=== PATIENT | male | born 1975 | race Hispanic/Latino ===

== ENCOUNTER 2022-09-14 13:15 | Emergency (ER) | payer OTHER ==
--- OUTSIDE RECORDS SUMMARY | 2022-09-14 13:17 | XMS REPORT | Continuity of Care Document ---
:1975 Author Organization [facility] t Address [address] [facility] [address] [place] [address] Care Team Providers Name Role Phone PCP, PATIENT DOES NOT HAVE A Primary Care Physician UnavailJONELLE Godwin Attending Clinician Unavailable Only, Will Db Moshe Attending Clinician Unavailable Unknown, Attending Attending Clinician Unavailable Doctor Unassigned, [place] [facility] [place] Attending Clinician Unavailable JAX CHEUNG Attending Clinician Unavailable Sosa WOOD, Paulina Patel Attending Clinician Unavailable CHAPARRITA MICHEL Attending Clinician Unavailable Payers Payer Name Policy Type Policy Number Effective Date Expiration Date Musa QUICK II [id number] 2020 00:00:00 Problems This patient has no known problems. Allergies, Adverse Reactions, Alerts Allergy Allergy Status Severity Reaction(s) Onset Inactive Treating Comm ents Source Name Type Date Date Clinician NO KNOWN Drug Active [facility]IE Class [facility] Medical Branch Social History Social Habit Start Date Stop Date Quantity Comments Source Exposure to 2021-12-15 2021-12-25 Not sure [facility] SARS-CoV-2 (event) 00:00:00 11:06:00 Medica l Branch Sex Assigned [birth year] [facility] 00:00:00 00:00:00 Medical Branch Smoking Status Start Date Stop Date Source Tobacco smoking consumption Univ [facility] unknown Branch Medications This patient has no known medications. Procedures Procedure Date / Time Performed Performing Clinician [facility] e ASSIGNMENT OF BENEFITS 2021-12-25 16:08:14 Doctor Unassigned, No [facility] Name Medical Branch Encounters Start End Encounter Admission Attending Care Care Encounter Source Date/Time Date/Time Type Type Clinicians Facility Department ID 2021-12-25 2021-12-25 Outpatient Ofelia GREENBERG [facility] [id number] Univers 11:00:00 11:28:07 JONELLE ity [facility] 2021-12-25 2021-12-25 Laboratory Only, Ang Db Test [facility] 1.2.8 [id number] Univers 11:00:00 11:15:00 Only Unknown, Attending HEALTH [id number] ity of [place] [id number] Gregor as LAVELLE?BLEA [phone] La dical [address] MEDICAL OFFICE BUILDING 2021-12-25 2021-12-25 Orders Doctor [id number] Univers 00:00:00 00:00:00 Only Unassigned, KIM [id number] ity of [place] [facility] [id number] Gregor as [phone] [address] 2021-03-11 2021-03-11 Outpatient R [facility] [id number] Univers 18:00:00 18:00:00 [id number] ity [facility] 2021-03-11 2021-03-11 Outpatient R JONATAN [facility] [id number] Univers 18:00:00 18:00:00 JAX moise o f [facility] 2021-03-11 2021-03-11 Letter JOHN Swan [id number] Univers 00:00:00 00:00:00 (Out) Paulina ALVAREZ [id number] it y of HOSPITAL [id number] Gregor as [phone] [facility] [address] [place] 2021-03-09 2021-03-09 [facility] [id number] Univers 15:30:00 15:52:37 CHAPARRITA [facility] Results This patient has no known results.
[2022-09-14] MEDS ORDERED: ASPIRIN 81 MG CHEWABLE TABLET ONE (13:47)
[2022-09-14] MEDS ORDERED: CYCLOBENZAPRINE 10 MG TAB ONE (13:47)
[2022-09-14 14:15] LABS: Absolute Lymphocytes (CBC) 2.3 K/uL (0.7-4.9); Hematocrit 47.6 % (39.6-49.0); Lymphocytes % 25.9 % (15.3-44.8); MCV 91.2 fL (80-100); MPV 9.1 fL (7.6-11.3); RBC Red Blood Cell Count 5.21 M/uL (4.33-5.43)
[2022-09-14 14:29] LABS: ALT/SGPT 72 U/L (16-61); AST/SGOT 29 U/L (15-37); Albumin 4.2 g/dL (3.4-5.0); Alkaline Phosphatase 60 U/L (45-117); BUN Blood Urea Nitrogen 12 mg/dL (7-18); Bicarbonate 26 mEq/L (21-32); Bilirubin Direct 0.2 mg/dL (0-0.2); Bilirubin Indirect, Calculated 0.7 mg/dL (0.2-0.8); Bilirubin Total 0.9 mg/dL (0.2-1.0); Glomerular Filtration Rate 105 ml/min (=/>90); Glucose Level 89 mg/dL (74-106); Magnesium 2.6 mg/dL (1.6-2.4); NT PRO-BNP 31 pg/mL (<125); Potassium 3.9 mEq/L (3.5-5.1); Protein, Total 7.9 g/dL (6.4-8.2); Sodium Level 138 mEq/L (136-145)
[2022-09-14 14:30] LABS: Troponin High Sensitivity < 3.0 pg/mL (<58.9)
--- NOTE | 2022-09-14 15:23 | RAD REPORT ---
EXAM DESCRIPTION: RAD - Chest Single View - 09/14/2022 3:13 pm CLINICAL HISTORY: CHEST PAIN COMPARISON: No comparisons FINDINGS: Lines: None. Lungs: No evidence of edema or pneumonia. Pleural: No significant pleural effusions or pneumothorax. Cardiac: The heart size is within normal limits. Mediastinum: Within normal limits. Bones: No acute fractures. Other: None IMPRESSION: No acute cardiopulmonary disease.
--- NOTE | 2022-09-14 15:38 | EDPHYS ---
Physician Documentation [facility] Name: Andre Interiano Age: 47 yrs Sex: Male : 1975 Arrival Date: 09/14/2022 Time: 13:15 Bed 17 Private MD: ED Physician Addison Edward HPI: 09/14 14:49 This 47 yrs old Male presents to ER via Ambulatory with complaints of Chest rt Pain, Back Pain. 14:49 Patient presents to the ED with a chest pain as well as back pain that has been present rt for about 2 days. Is been constant but waxes and wanes in intensity. The patient states that his symptoms actually improve when he moves about and gets worse when he is sitting down and resting. Denies any association with food. He denies other acute complaints at this time or other associated symptoms. Symptoms are moderate severity, aching nature, otherwise radiating, no other aggravating alleviating factors.. Historical: - Allergies: 13:36 No Known Allergies; jl7 - Home Meds: 13:36 None [Active]; jl7 - PMHx: 13:36 None; jl7 - PSHx: 13:36 None; jl7 - Immunization history:: Adult Immunizations unknown. - Social history:: Smoking status: Patient reports the use of cigarette tobacco products. ROS: 14:49 Constitutional: Negative for fever, chills, and weight loss, Abdomen/GI: Negative for rt abdominal pain, nausea, vomiting, diarrhea, and constipation, MS/Extremity: Negative for injury and deformity, Skin: Negative for injury, rash, and discoloration, Neuro: Negative for headache, weakness, numbness, tingling, and seizure, Psych: Negative for depression, anxiety, suicide ideation, homicidal ideation, and hallucinations. 14:49 Cardiovascular: Positive for chest pain, Negative for edema. 14:49 Back: Positive for pain at rest, Negative for injury or acute deformity. Exam: 14:49 Constitutional: This is a well developed, well nourished patient who is awake, alert, rt and in no acute distress. Head/Face: Normocephalic, atraumatic. Chest/axilla: Normal chest wall appearance and motion. Nontender with no deformity. No lesions are appreciated. Cardiovascular: Regular rate and rhythm with a normal S1 and S2. No gallops, murmurs, or rubs. Normal PMI, no JVD. No pulse deficits. Respiratory: Lungs have equal breath sounds bilaterally, clear to auscultation and percussion. No rales, rhonchi or wheezes noted. No increased work of breathing, no retractions or nasal flaring. Abdomen/GI: Soft, non-tender, with normal bowel sounds. No distension or tympany. No guarding or rebound. No evidence of tenderness throughout. Skin: Warm, dry with normal turgor. Normal color with no rashes, no lesions, and no evidence of cellulitis. MS/ Extremity: Pulses equal, no cyanosis. Neurovascular intact. Full, normal range of motion. Neuro: Awake and alert, GCS 15, oriented to person, place, time, and situation. Cranial nerves II-XII grossly intact. Motor strength 5/5 in all extremities. Sensory grossly intact. Cerebellar exam normal. Normal gait. Psych: Awake, alert, with orientation to person, place and time. Behavior, mood, and affect are within normal limits. 14:49 ECG was reviewed by the Attending Physician. Vital Signs: 13:22 BP 150 / 92; Pulse 59; Resp 15; Temp 97.2; Pulse Ox 97% ; bp 14:30 BP 135 / 93; Pulse 62; Resp 14; Pulse Ox 97% ; bp 16:38 BP 140 / 91; Pulse 57; Resp 12; Pulse Ox 99% ; bp MDM: 13:24 Patient medically screened. rt 15:39 Differential diagnosis: ACS, chest wall pain, pneumonia, pneumothorax. HEART Score: rt History: Slightly Suspicious (0), ECG: Non specific repolarization disturbance / LBTB / PM (1), Age: > 45 and < 65 years (1), Risk Factors: No Risk Factors Known (0), Troponin: < or = 1 x Normal Limit (0), Total Score = 2. The patient was given aspirin in the Emergency Department. Data reviewed: vital signs, nurses notes, lab test result(s), EKG, radiologic studies. Consideration of Admission/Observation Escalation of care including admission/observation considered. Patient with history that is not typical of an acute coronary syndrome, symptoms not consistent with thoracic aortic dissection, CT angiogram not indicated. The patient is improving symptoms with muscle relaxers. The patient has a negative troponin with 2 days of symptoms, does not require admission for rule out.. Counseling: I had a detailed discussion with the patient and/or guardian regarding: the historical points, exam findings, and any diagnostic results supporting the discharge/admit diagnosis, lab results, radiology results, the need for outpatient follow up, to return to the emergency department if symptoms worsen or persist or if there are any questions or concerns that arise at home. Response to treatment: the patient's symptoms have markedly improved after treatment. 09/14 13:36 Order name: Basic Metabolic Panel; Complete Time: 14:37 rt 09/14 13:36 Order name: CBC with Diff; Complete Time: 14:37 rt 09/14 13:36 Order name: LFT's; Complete Time: 14:37 rt 09/14 13:36 Order name: Magnesium; Complete Time: 14:37 rt 09/14 13:36 Order name: NT PRO-BNP; Complete Time: 14:37 rt 09/14 13:36 Order name: Troponin HS; Complete Time: 14:37 rt 09/14 13:36 Order name: XRAY Chest (1 view); Complete Time: 15:27 rt 09/14 13:36 Order name: EKG; Complete Time: 13:36 rt 09/14 13:36 Order name: Cardiac monitoring; Complete Time: 13:37 rt 09/14 13:36 Order name: EKG - Nurse/Tech; Complete Time: 13:36 rt 09/14 13:36 Order name: IV Saline Lock; Complete Time: 13:46 rt 09/14 13:36 Order name: Labs collected and sent; Complete Time: 13:46 rt 09/14 13:36 Order name: O2 Per Protocol; Complete Time: 13:37 rt 09/14 13:36 Order name: O2 Sat Monitoring; Complete Time: 13:37 rt EC:49 Rate is 60 beats/min. Rhythm is regular, Normal Sinus Rhythm with No ectopy. QRS [place] rt is Normal. MN interval is normal. QRS interval is normal. QT interval is normal. No Q waves. T waves are Normal. Administered Medications: 13:46 Drug: Aspirin PO Chewable Tablet 324 mg Route: PO; bp 13:46 Drug: Cyclobenzaprine PO 10 mg Route: PO; bp Disposition Summary: 09/14/22 15:37 Discharge Ordered Location: Home rt Problem: new rt Symptoms: have improved rt Condition: Stable rt Diagnosis - Chest pain, unspecified rt Followup: rt - With: Ochoa Morales MD - When: 5 - 6 days - Reason: Discharge Instructions: - Discharge Summary Sheet rt - Nonspecific Chest Pain, Adult rt Forms: - Medication Reconciliation Form rt - Thank You Letter rt - Antibiotic Education rt - Prescription Opioid Use rt - Patient Portal Instructions rt Prescriptions: - Cyclobenzaprine 10 mg Oral Tablet - take 1 tablet by ORAL route every 8 hours As needed; 15 tablet; Refills: 0, rt Product Selection Permitted Signatures: Dispatcher [employer] Bobbi Mcclure RN RN jl7 Umair Gaona RN RN bp Addison Edward MD MD rt
--- NOTE | 2022-09-14 15:38 | ER ---
Nurse's Notes [facility] Name: Andre Interiano Age: 47 yrs Sex: Male : 1975 Arrival Date: 09/14/2022 Time: 13:15 Bed 17 Private MD: Diagnosis: Chest pain, unspecified Presentation: 09/14 13:22 Chief complaint: Patient states: Midsternal CP and upper back back x 2 days, denies jl7 shortness of breath. 13:22 Coronavirus screen: At this time, the client does not indicate any symptoms associated jl7 with coronavirus-19. Ebola Screen: No symptoms or risks identified at this time. Initial Sepsis Screen: Does the patient meet any 2 criteria? No. Patient's initial sepsis screen is negative. Does the patient have a suspected source of infection? No. Patient's initial sepsis screen is negative. Risk Assessment: Do you want to hurt yourself or someone else? Patient reports no desire to harm self or others. Onset of symptoms was September 12, 2022. 13:22 Method Of Arrival: Ambulatory 7 13:22 Acuity: KAMILA 2 jl7 Triage Assessment: 13:36 General: Appears in no apparent distress. uncomfortable, Behavior is calm, cooperative, jl7 appropriate for age. Pain: Complains of pain in thoracic area and mid-sternal area. Cardiovascular: Patient's skin is warm and dry. Historical: - Allergies: 13:36 No Known Allergies; jl7 - Home Meds: 13:36 None [Active]; jl7 - PMHx: 13:36 None; jl7 - PSHx: 13:36 None; jl7 - Immunization history:: Adult Immunizations unknown. - Social history:: Smoking status: Patient reports the use of cigarette tobacco products. Screenin:30 [facility] ED Fall Risk Assessment (Adult) History of falling in the last 3 months, bp including since admission No falls in past 3 months (0 pts). Abuse screen: Denies threats or abuse. Denies injuries from another. Nutritional screening: No deficits noted. Tuberculosis screening: No symptoms or risk factors identified. Assessment: 13:45 General: SEE TRIAGE NOTE. bp 14:30 Reassessment: Patient appears in no apparent distress at this time. Patient is alert, bp oriented x 3, equal unlabored respirations, skin warm/dry/pink. 16:38 Reassessment: PT DC HOME AMBULATORY. bp Vital Signs: 13:22 BP 150 / 92; Pulse 59; Resp 15; Temp 97.2; Pulse Ox 97% ; bp 14:30 BP 135 / 93; Pulse 62; Resp 14; Pulse Ox 97% ; bp 16:38 BP 140 / 91; Pulse 57; Resp 12; Pulse Ox 99% ; bp ED Course: 13:17 Patient arrived in ED. mr 13:20 Addison Edward MD is Attending Physician. rt 13:21 Umair Gaona, RN is Primary Nurse. bp 13:22 Arm band placed on right wrist. EKG completed in triage. Results shown to MD. jl7 13:36 Triage completed. jl7 13:47 Inserted saline lock: 20 gauge in right forearm, using aseptic technique. Blood bp collected. 14:30 Patient has correct armband on for positive identification. Bed in low position. Call bp light in reach. Side rails up X2. Client placed on continuous cardiac and pulse oximetry monitoring. NIBP monitoring applied. 15:16 XRAY Chest (1 view) In Process Unspecified. EDMS 15:37 Ochoa Morales MD is Referral Physician. rt 16:38 No provider procedures requiring assistance completed. IV discontinued, intact, bp bleeding controlled, No redness/swelling at site. Pressure dressing applied. Patient maintains SpO2 saturation greater than 95% on room air. Administered Medications: 13:46 Drug: Aspirin PO Chewable Tablet 324 mg Route: PO; bp 13:46 Drug: Cyclobenzaprine PO 10 mg Route: PO; bp Outcome: 15:37 Discharge ordered by MD. rt 16:38 Discharged to home ambulatory. bp 16:38 Condition: stable 16:38 Discharge instructions given to patient, Instructed on discharge instructions, follow up and referral plans. medication usage, Demonstrated understanding of instructions, follow-up care, medications, Prescriptions given X 1. 16:39 Patient left the ED. bp Signatures: Dispatcher [employer] EDNY Chidi Chantelle CorderoBobbi, RN RN [email or web address] Umair Gaona, [place] RN bp Addison Edward MD MD rt
[2022-09-14 17:49] VITALS: TEMP 97.2
[2022-09-14 17:52] VITALS: BP 140/91; O2SAT 99
--- NOTE | 2022-09-17 11:51 | EKG ---
Test Date: 2022-09-14 Test Time: 13:25:51 Furnace Filler: XIAO MEASUREMENT RESULTS: Intervals: Rate: 60 MT: 142 QRSD: 80 QT: 416 QTc: 416 [place]: P: 30 MT: 142 QRS: 41 T: 44 INTERPRETIVE STATEMENTS: Normal sinus rhythm Nonspecific ST abnormality Abnormal ECG No previous ECG available for comparison Electronically Signed On 09-17-22 11:46:45 CDT by Ochoa Morales
== END 2022-09-14 16:39 | disposition home or self-care (01) ==
LOC: ER 13:15
DX: R07.9 Chest pain, unspecified (principal); Z72.0 Tobacco use
CPT/HCPCS: 36415; 71045; 80048; 80076; 83735; 83880; 84484; 85025; 93005; 99285